=== PATIENT | male | born 1995 | race Caucasian/White ===

== ENCOUNTER 2017-11-29 07:04 | Emergency (ER) | payer BC ==
[2017-11-29] MEDS ORDERED: Triamcinolone Acetonide 40 MG/ML 1 ML MDV IM ONE (08:02)
--- NOTE | 2017-11-30 13:03 | ER ---
DATE SEEN: 11/29/2017 The patient was seen at 0714 hours. HISTORY OF PRESENT ILLNESS: The patient works for [employer] ([place], [place]). He has been working with the company for the last month and has noted 2 days ago was exposed to one of the 4 chemical listed below, and had facial swelling. The paint/chemicals that were being used is: 1. Medical Billing Manager. 2. Lacquer thinner. 3. Regular paint. 4. Hardener. All these paints/chemicals are used on the structural steel. The patient uses special mask, a [facility] mask. He has been exposed to the following chemicals; Hydroxides, i.e. ammonium hydroxide, etc., plus aliphatic hydrocarbon solvent: Toluene, ethylbenzene, xylene, methanol, 2-propanol, acetone, 2- Butoxyethyl acetate. The patient not allergic to any specific foods. He does not have a history of allergies to chemicals. He notes his nose has been runny and stuffy. Denies tightness of throat, soreness of throat, or fullness of the throat, shortness of breath, wheezing, or asthma. His boss provided Cortizone-10 (OTC). When he applied this to his face, his face seemed to flare more with the Cortizone-10 (possible that Cortizone-10 may have magnified a chemical response in his face). He is not exposed to any new cosmetics - he has not shaved for the last 3 to 4 days. No exposure to sunscreens, unusual food preservatives, or special sport drinks. He does drink Gatorade. He has never experienced a reaction like this before. PAST MEDICAL HISTORY: Surgery: Negative. Allergies: Negative. Diabetes: Negative. Medications: Negative. No family history of the same. REVIEW OF SYSTEMS: Otherwise negative. When talked about his skin, he said that it was moist and weeping yesterday but not today. The face is better today. There is mild swelling in his face. He does not have involvement of any other surface of his body. His forearms are not involved. 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 PHYSICAL EXAMINATION: VITAL SIGNS: Blood pressure 106/65, heart rate 90 and regular, respirations 18, oxygen saturation 100%. Weight 108.862 kg, 38.7 kg/m2. SKIN: The patient has a traumatic swollen face with his right eye swollen more than the left eye. No drainage from his ocular structures. He has difficulty opening his right eye, but he can open his left easily and can see through a slit of swollen lids. Has homogeneous erythematous facial swelling without edema of the scalp. Neck has minimal involvement. Chest and trunk are without any rash. ABDOMEN: He has had pigmented striae on his abdomen because of his weight - obesity. He denies shortness of breath. HEENT: Pharynx without erythema, uvular edema, or posterior pharyngeal edema. He has a denasal speech. The turbinates are markedly boggy and in juxtaposition to the septum. No rhinorrhea presently. NECK: Supple. No cervical adenopathy. No masses in the neck. No thyromegaly. No tracheal tug. LUNGS: Clear without rales, rhonchi, or wheezes. HEART: S1, S2. No murmur. No irregular rate or rhythm. ABDOMEN: Soft. No guarding. No abdominal discomfort. He has mild increased abdominal girth. EXTREMITIES: Without abnormality. He has multiple areas of excoriations in his lower extremities secondary to "mosquito bites that has been itchy." No rash noted in his lower extremities otherwise. Facial edema with homogeneous erythema. ASSESSMENT: Initial appearance of his rash appears that of chemical burn, not of an allergic reaction. Chemical burn could be one of the four chemicals: online marketing director, lacquer thinner, regular paint, hardener, or it is possible that he is not using his facial mask properly or it is possible that the chemicals on his hair have leached downward onto this face from the scalp sweating. He denies itching sensation of his face or rubbing his face. Denies itching in his eyes. It is remotely possible that triamcinolone might diminish this inflammatory response. If it does, it would suggest his response is primarily that of an allergic response. Plan is to treat possible allergic reaction with trial of triamcinolone - Kenalog 40 mg IM, Benadryl 50 mg q.6 hours, Tagamet (H2 baylee) q.i.d., and Benadryl 50 mg q.i.d. I have advised and I would not prescribe Cortisone for the face as it may cause scarring and thinning of the face dermis. I did not inject subq epinephrine, as this is not an acute allergic response, it has been there for 2+ days. The patient is to follow up with the doctor in a week or earlier if worse. /[id number] АНДРЕЙ/WONG BARRON
== END 2017-11-29 08:25 | disposition home or self-care (01) ==
LOC: FB.ED 07:04
DX: L53.8 Other specified erythematous conditions (principal); R60.0 Localized edema
CPT/HCPCS: 96372; 99283; J3301

== ENCOUNTER 2018-01-01 07:42 | Emergency (ER) | payer BC ==
--- NOTE | 2018-01-01 08:12 | EDM.PDOC ---
ED HPI GENERAL MEDICAL PROBLEM - General Chief Complaint: ENT Problem Stated Complaint: FACIAL SWELLING Time Seen by Provider: 01/01/18 07:50 Source of Information: Reports: Patient History Limitations: Reports: No Limitations - History of Present Illness INITIAL COMMENTS - FREE TEXT/NARRATIVE: Cas comes into [facility] ED with facial swelling, in addition to a rash that has spread over the torso to the groin. There is itching and swelling of the face, and a reddened rash over the torso. There is no respiratoiry sxs of cough or wheezing, and no stridor. 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 He does not have the product materials sheet or label for inspection. He has been applying Benedryl creme for treatment. Right Eye Pain Score (Numeric/FACES): 2 - Related Data Allergies Allergy/AdvReac Type Severity Reaction Status Date / Time No Known Allergies Allergy Verified 01/01/18 07:53 Home Meds: Home Meds Cetirizine [ZyrTEC] 10 mg PO DAILY 11/29/17 [History] methylPREDNISolone [Medrol] 84 mg PO ASDIRECTED #1 dospk 01/01/18 [Rx] Social & Family History - Tobacco Use Smoking Status *Q: Current Every Day Smoker Years of Tobacco use: 5 Packs/Tins Daily: 0.5 - Caffeine Use Caffeine Use: Reports: Soda - Recreational Drug Use Recreational Drug Use: No ED ROS ALLERGIC REACTION - Review of Systems Review Of Systems: ROS reveals no pertinent complaints other than HPI. ED EXAM GENERAL NO PERIP PULSE - Physical Exam Exam: See Below Exam Limited By: No Limitations General Appearance: Alert, WD/WN, Mild Distress Eye Exam: Bilateral Eye: EOMI, Normal Fundi, PERRL Ears: Other (some swelling of pinnae) Nose: Clear Rhinorrhea, Other (mild erythema of nose) Throat/Mouth: Normal Inspection, Normal Lips, Normal Oropharynx, Normal Voice, No Airway Compromise Head: Facial Swelling (more pronounced R periorbital and facial) Neck: Supple, Non-Tender, Other (mild erythema) Respiratory/Chest: No Respiratory Distress, Lungs Clear, Normal Breath Sounds, No Accessory Muscle Use, Chest Non-Tender, Other (mild anterior erythema) Cardiovascular: Regular Rate, Rhythm, No Murmur GI/Abdominal: Normal Bowel Sounds, Soft, Non-Tender, No Organomegaly, No Distention, No Mass (Male) Exam: Normal Inspection, Other (no erythema) Rectal (Males) Exam: Deferred Back Exam: Normal Inspection Extremities: Normal Inspection Neurological: Alert, Oriented, CN II-XII Intact, Normal Cognition, Normal Gait, No Motor/Sensory Deficits Psychiatric: Normal Affect, Normal Mood Skin Exam: Warm, Dry, Erythema Lymphatic: No Adenopathy Course - Vital Signs Text/Narrative:: Findings consistent with apparent topical exposure and some limited systemic reaction. Last Recorded V/S: Last Vital Signs Temp 36.4 C 01/01/18 07:42 Pulse 97 01/01/18 07:42 Resp 18 01/01/18 07:42 BP 118/61 01/01/18 07:42 Pulse Ox 98 01/01/18 07:42 Departure - Departure Time of Disposition: 08:13 Disposition: Home, Self-Care 01 Condition: Fair Clinical Impression: Allergic reaction to chemical substance Qualifiers: Encounter type: initial encounter Injury intent: accidental or unintentional Qualified Code(s): T65.91XA - Toxic effect of unspecified substance, accidental (unintentional), initial encounter - Discharge Information Prescriptions: methylPREDNISolone [Medrol] 84 mg PO ASDIRECTED #1 dospk Referrals: PCP,None [Primary Care Provider] - - Problem List & Annotations (1) Allergic reaction to chemical substance SNOMED Code(s): 607539635 Code(s): T65.91XA - TOXIC EFFECT OF UNSP SUBSTANCE, ACCIDENTAL, INIT Status : Acute Annotation/Comment:: I dispensed a Medrol Dosepak, suggested oral Benedryl for itching, and sxs cares. Qualifiers: Encounter type: initial encounter Injury intent: accidental or unintentional Qualified Code(s): T65.91XA - Toxic effect of unspecified substance, accidental (unintentional), initial encounter - Problem List Review Problem List Initiated/Reviewed/Updated: Yes - Assessment/Plan Plan: Follow up with PCP if needed.
== END 2018-01-01 08:15 | disposition home or self-care (01) ==
LOC: FB.ED 07:42
DX: T65.891A Toxic effect of other specified substances, accidental (unintentional), initial encounter (principal); F17.210 Nicotine dependence, cigarettes, uncomplicated; Z79.899 Other long term (current) drug therapy
CPT/HCPCS: 99282